=== PATIENT | male | born 1985 | race Asian ===

== ENCOUNTER 2018-08-13 23:08 | Emergency (ER) | payer BC ==
[~2018-08-13] VITALS: Ht 180.3 cm; Wt 74.8 kg
[2018-08-13 23:09] VITALS: Ht 180.3 cm; Wt 74.8 kg
[2018-08-13 23:50] LABS: BASOPHIL % 0.5 % (0-2); PLATELET COUNT 298 x10^3mcL (130-400); RED CELL DISTRIBUTION WIDTH 12.9 % (11.5-14.5)
[2018-08-13 23:56] LABS: CALCIUM 9.2 mg/dL (8.5-10.1); CARBON DIOXIDE 29.5 mmol/L (21-32); CHLORIDE SERUM 105 mmol/L (98-107); GFR1 > 60 mL/min; GLUCOSE SERUM 104 mg/dL (74-106); POTASSIUM SERUM 3.4 mmol/L (3.5-5.1); SODIUM SERUM 142 mmol/L (136-145)
[2018-08-14] LABS: ALBUMIN 3.2 g/dL (3.4-5.0); ALKALINE PHOSPHATASE 92 U/L (46-116); ALT/SGPT 20 U/L (16-63); AST/SGOT 12 U/L (15-37); BILIRUBIN TOTAL 0.36 mg/dL (0.20-1.00); TOTAL PROTEIN, SERUM 6.3 g/dL (6.4-8.2)
[2018-08-14 01:41] VITALS: BP 120/78
== END 2018-08-14 01:41 | disposition home or self-care (01) ==
LOC: ED 23:08
PROVIDERS: Emergency Medicine
DX: N20.2 Calculus of kidney with calculus of ureter (principal)
CPT/HCPCS: J1885; J3010